=== PATIENT | male | born 1970 | race Caucasian/White ===

== ENCOUNTER 2019-06-15 09:44 | Emergency (ER) | payer BC ==
--- OUTSIDE RECORDS SUMMARY | 2019-06-15 10:20 | XMS REPORT | Continuity of Care Document ---
:1970 External Reference #:[id number] Author Name Maykel Diaz M.D. (transmitted by agent of provider Svetlana Cheema) Address [address] [place] [address] [place] [address] Care Team Providers Name Role Phone Patient's Choice Care Team Information Pet Care Assistant Unavailable Problems Description No Information Available Social History Type Date Description Comments Sex Unknown ETOH Use Denies alcohol use Tobacco Use Start: Unknown Patient has never smoked Smoking Status Reviewed: 05/22/19 Patient has never smoked Exercise Type/Frequency Exercises regularly Allergies, Adverse Reactions, Alerts Description No Known Drug Allergies Medications Active Medications SIG Qnty Indications Ordering Provider Date Ibuprofen 1 by mouth 90tabs Unknown 800mg Tablets three times a day Immunizations Description No Information Available Vital Signs Date Vital Result Comment 05/22/2019 11:17am Height 71 inches 5'11" Weight 194.00 lb Heart Rate 86 /min BP Systolic 128 mmHg BP Diastolic 90 mmHg Body Temperature 97.6 F Pain Level 6 BMI (Body Mass Index) 27.1 kg/m2 Results Description No Information Available Procedures Description No Information Available Medical Devices Description No Information Available Encounters Type Date Location Provider Dx Diagnosis Office Visit 05/22/2019 [facility] Rachelle [id number] Posterior tibial 10:45a at [facility] tendinitis, left leg M79.672 Pain in left foot Assessments Date Code Description Provider 05/22/2019 [id number] Posterior tibial tendinitis, left leg Maykel Diaz M.D. 05/22/2019 M79.672 Pain in left foot Maykel Diaz M.D. Plan of Treatment 05/22/2019 - Jesus [id number] Posterior tibial tendinitis, left legFollow up:Follow up: after testing is [id number] Pain in left footNew Xrays:Feet Bilateral, Ordered: 05/22/19MRI Lower Extremity Left W/O, Ordered: 05/22/19 Functional Status Description No Information Available Mental Status Description No Information Available Referrals Description No Information Available
--- NOTE | 2019-06-15 10:57 | ED ---
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 He states that he has had similar flare-ups of pain previously, noting this is his third within the past three months. He states that his flare-ups typically last a few days and then spontaneously resolve. However, he states that the pain with this present episode is more severe than any previous episode. On triage, pain is rated 8/ 10. Swelling of left foot is noted as well. Patient states that he is being followed by Dr. Diaz, orthopedics, who had done an X-ray and MRI of his left foot before his current flare-up. He states that he was advised that surgery would be recommended if his Sx worsen. Patient states that he plans to reach his orthopedic doctor with regards to his Sx but would like acute pain relief as ibuprofen has not been helping. No PMHx is otherwise noted. He states that he quit drinking alcohol six weeks ago but drank a bit last night in hopes of finding some relief from his pain. Allergies are denied. Home medications reviewed. - History of Current Complaint Chief Complaint: EDExtremityLower Stated Complaint: LT FOOT SWELLING PER PT Time Seen by Provider: 06/15/19 10:29 Hx Obtained From: Patient Mechanism Of Injury: Other - no ILANA Onset of Pain: Prior to Arrival Onset/Duration: Still Present Severity Currently: Severe Pain Intensity: 8 Pain Scale Used: 0-10 Numeric Timing: Constant Location: Is Discrete @ - left foot Associated Signs And Symptoms: Positive: Swelling - left foot - Allergies/Home Medications Allergies/Adverse Reactions: Allergies Allergy/AdvReac Type Severity Reaction Status Date / Time No Known Allergies Allergy Verified 06/15/19 09:50 PMH/Surg Hx/FS Hx/Imm Hx Endocrine/Hematology History: Denies: Hx Diabetes, Hx Thyroid Disease Cardiovascular History: Denies: Hx Hypertension, Hx Pacemaker/ICD Respiratory History: Denies: Hx Asthma, Hx Chronic Obstructive Pulmonary Disease (COPD) GI History: Denies: Hx Ulcer Sensory History: Denies: Hx Hearing Aid Psychiatric History: Denies: Hx Panic Disorder - Immunization History Date of Influenza Vaccine: none Infectious Disease History: No Infectious Disease History: Denies: Hx Hepatitis, Hx Human Immunodeficiency Virus (HIV), Traveled Outside the [place] in Last 30 Days - Family History Known Family History: Negative: Cardiac Disease, Hypertension, Diabetes - Social History Alcohol Use: Occasionally Substance Use Type: Reports: None Smoking Status (MU): Never Smoked Tobacco Review of Systems Negative: Fever - on vitals, temp is 97.4 F Musculoskeletal: Other - positive - left foot pain Positive: Edema - left foot All Other Systems Reviewed And Are Negative: Yes Physical Exam - Summary Physical Exam Summary: Appearance: The patient is well-nourished in no acute distress and in no acute pain. Skin: The skin is warm and dry, and skin color reflects adequate perfusion. HEENT: The head is normocephalic and atraumatic. The pupils are equal and reactive. The conjunctivae are clear and without drainage. Nares are patent and without drainage. Mouth reveals moist mucous membranes, and the throat is without erythema and exudate. The external ears are intact. The ear canals are patent and without drainage. The tympanic membranes are intact. Neck: The neck is supple with full range of motion and non-tender. There are no carotid bruits. There is no neck vein distension. Respiratory: Chest is non-tender. Lungs are clear to auscultation and breath sounds are symmetrical and equal. Cardiovascular: Heart is regular rate and rhythm. There is no murmur or rub auscultated. Pulses are symmetrical and equal. Abdomen: The abdomen is soft and non-tender. There are normal bowel sounds heard in all four quadrants and there is no organomegaly palpated. Musculoskeletal: There is swelling and tenderness to the medial aspect of the mid left foot. There is no back tenderness noted. Extremities with full range of motion. There is good capillary refill. There is no calf tenderness elicited. Neurological: Patient is alert and oriented to person, place and time. The patient has symmetrical motor strength in all four extremities. Cranial nerves are grossly intact. Deep tendon reflexes are symmetrical and equal in all four extremities. Psychiatric: The patient has an appropriate affect and does not exhibit any anxiety or depression. Triage Information Reviewed: Yes Vital Signs On Initial Exam: Initial Vitals Temp Pulse Resp BP Pulse Ox 97.4 F 87 16 174/101 98 06/15/19 09:47 06/15/19 09:47 06/15/19 09:47 06/15/19 09:47 06/15/19 09:47 Vital Signs Reviewed: Yes Procedures - Sedation Patient Received Moderate/Deep Sedation with Procedure: No Diagnostics - Vital Signs Vital Signs Temp Pulse Resp BP Pulse Ox 06/15/19 09:47 97.4 F 87 16 174/101 98 - Laboratory Lab Statement: Any lab studies that have been ordered have been reviewed, and results considered in the medical decision making process. Lower Extremity Course/Dx - Course Course Of Treatment: Mr. Fierro presented with a diagnosis an MRI scan. These exacerbations in the past but none painful. There is no evidence that this represents an infectious process and I'm treating him symptomatically with a few doses of prednisone and some tramadol. I recommended follow-up with Dr. Joe colón. - Diagnoses Provider Diagnoses: Left foot pain Discharge ED - Sign-Out/Discharge Documenting (check all that apply): Patient Departure - discharge - Discharge Plan Condition: Stable Disposition: HOME Prescriptions: predniSONE TAB* [Deltasone 20 MG TAB*] 40 mg PO DAILY #6 tab traMADol TAB* [Ultram*] 50 mg PO Q6HR PRN #10 tab MDD 4 PRN Reason: Pain Patient Education Materials: Leg Pain (ED) Referrals: [facility] [Outside] Maykel Diaz MD [Medical Doctor] - Additional Instructions: PLEASE RETURN TO ED FOR ANY NEW OR CONCERNING SYMPTOMS. PLEASE FOLLOW UP WITH YOUR PRIMARY CARE PHYSICIAN AND ORTHOPEDICS WITHIN THREE DAYS. - Billing Disposition and Condition Condition: STABLE Disposition: Home - Attestation Statements Document Initiated by Maik: Yes Documenting Scribe: SAIDA STROUD Provider For Whom Maik is Documenting (Include Credential): KYLIE SIMMONS MD Scribe Attestation: ISAIDA, scribed for KYLIE SIMMONS MD on 06/15/19 at 1421. Scribe Documentation Reviewed: Yes Provider Attestation: The documentation as recorded by the SAIDA davila accurately reflects the service I personally performed and the decisions made by me, KYLIE SIMMONS MD Status of Scribe Document: Viewed
[2019-06-15 11:26] VITALS: BP 129/89
== END 2019-06-15 11:30 | disposition home or self-care (01) ==
LOC: ED 09:44
DX: M79.672 Pain in left foot (principal); R60.0 Localized edema
CPT/HCPCS: 99281